=== PATIENT | male | born 1960 | race American Indian/Alaskan Native ===

== ENCOUNTER 2018-08-27 07:40 | Day surgery (SDC) | payer OTHER ==
[~2018-08-27 07:40] MED LIST: NACL 0.9% 1000 ML 1,000 ML IV SCH
[2018-08-27] MEDS ORDERED: VERSED ONE ×2 (09:32→10:15)
[2018-08-27] MEDS ORDERED: XYLOCAINE 1% 20 mL ONE (09:32)
--- NOTE | 2018-08-27 09:32 | Anesthesia Day of Surgery ---
Anesthesia Day of Surgery - Day of Surgery Patient Examined: Yes Patient H&P Reviewed: Yes Patient is NPO: Yes
[2018-08-27] MEDS ORDERED: DIPRIVAN 10 MG/ML IV ONE ×2 (09:33→10:15)
--- NOTE | 2018-08-27 09:33 | Anesthesia Consultation ---
Anesthesia Consult and Med Hx Date of service: 08/27/18 - Airway Anesthetic Teeth Evaluation: Good - Pre-Operative Health Status ASA Pre-Surgery Classification: ASA2 Proposed Anesthetic Plan: MAC - Endocrine Hx Renal Disease: Yes (kidney stones) - Additional Comments Anesthesia Medical History Comments: glaucoma. denies other medical history
--- NOTE | 2018-08-27 10:08 | Procedure Note ---
Date of procedure: 08/27/18 Pre-op diagnosis: Colon Polyp Screening/ Hematochezia Post-op diagnosis: other (Hematochezia secondary to minor Internal Hemorrhoids (not significant enough for banding)/ No Colon Polyps noted/ Minor,Diverticular Disease) Procedure: Colonoscopy Anesthesia: MAC Surgeon: THOMAS LYNCH Estimated blood loss: none Pathology: none Condition: stable Disposition: same day (Encourage fiber intake and follow up in 1 to 2 weeks ([phone]).)
[2018-08-27 10:11] VITALS: BP 106/76
--- NOTE | 2018-08-27 10:15 | Operative Report ---
COLONOSCOPY INDICATIONS: A 58-year-old -[place] gentleman with a family history of cancer. The patient's mother had breast cancer. Lately, the patient had been noticing in addition some GI bleeding. Colonoscopy was done to assess for colon polyp screening and also for the hematochezia. DESCRIPTION OF PROCEDURE: The procedure was done after getting informed consent with MAC anesthesia. Initial rectal exam was unremarkable. Instrument was passed through the rectum onto the cecum, which was identified by the ileocecal valve and the appendiceal orifice. Visualization was fair to good. The scope was retroflexed in the cecum and did not show any additional pathology. The scope was then withdrawn to the hepatic flexure and reintroduced and again there was no additional pathology noted. The cecum, ascending colon and transverse colon showed normal mucosa. There were a few minor diverticula noted in the left colon and the rectum showed mild internal hemorrhoids on the retroverted view, which may have been the cause of the patient's hematochezia, but was not significant enough for banding. ASSESSMENT: Colon polyp screening, no colon polyps noted. Hematochezia secondary to minor internal hemorrhoids not significant enough for banding. Minor diverticular disease. The patient will be encouraged to take fiber supplements. Resume home medication and follow up in the office in 1-2 weeks' time. RNMelia was in the room throughout the entirety of the procedure. JOB# [id number] LOKESH/MOIRA
== END 2018-08-27 07:41 | disposition home or self-care (01) ==
LOC: GIO 07:40
DX: K64.8 Other hemorrhoids (principal); K57.30 Diverticulosis of large intestine without perforation or abscess without bleeding; K92.1 Melena; Z80.0 Family history of malignant neoplasm of digestive organs; Z80.3 Family history of malignant neoplasm of breast; Z79.899 Other long term (current) drug therapy; Z87.442 Personal history of urinary calculi
CPT/HCPCS: 45378; J2250; J2704; J7030